=== PATIENT | male | born 1950 | race American Indian/Alaskan Native ===

== ENCOUNTER → 2017-09-25 | Outpatient (CLI) | payer OTHER | LOC: LAB SHORT 13:20 → LAB EV 13:20 | DX: J06.9 Acute upper respiratory infection, unspecified (principal) | CPT/HCPCS: 87070 ==

== ENCOUNTER 2020-04-13 07:51 | Day surgery (SDC) | payer OTHER ==
[~2020-04-13] VITALS: Ht 177.8 cm; Wt 103.0 kg
[~2020-04-13 07:51] MED LIST: ALLO100 PO; AMLO10 PO; LOSA25 PO; Neurontin300 MG PO; OMEP20ER PO; PARO10 PO; PRAV20 PO
--- NOTE | 2020-04-13 08:53 | NUR ---
Lungs clear T/O to Auscultation. History, Chart, Medications and Allergies reviewed before start of procedure. Patient confirms NPO status and agrees with scheduled surgery.
--- NOTE | 2020-04-13 09:04 | NUR ---
KNEE HIGH AIDA HOSE AND CALF PAS APPLIED TO RLE.
--- NOTE | 2020-04-13 09:17 | NUR ---
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
--- NOTE | 2020-04-13 17:52 | NUR ---
SHIFT SUMMARY PT HAS DONE WELL POST OP. INITIALLY STRUGGLED WITH PAIN BUT MUCH BETTER NOW. WORKED WITH THERAPY IN HALLWAY. EATING AND DRINKING. WILL ATTEMPT TO VOID, IF UNSUCCESSFUL BLADDER SCAN.
[2020-04-14 04:34] LABS: BASOPHILS ABSOLUTE AUTO 0.03 K/mm3 (0.00-0.23); BASOPHILS PERCENT AUTO 0 % (0-2); EOSINOPHILS ABSOLUTE AUTO 0.03 K/mm3 (0.00-0.68); EOSINOPHILS PERCENT AUTO 0 % (0-6); Hematocrit 39.4 % (37.0-53.0); Hemoglobin 13.7 g/dL (13.5-17.5); IMMATURE GRAN ABSOLUTE AUTO 0.07 K/mm3 (0.00-0.10); IMMATURE GRAN PERCENT AUTO 1 % (0-1); LYMPHOCYTES ABSOLUTE AUTO 2.98 K/mm3 (0.84-5.20); LYMPHOCYTES PERCENT AUTO 21 % (21-46); MONOCYTES ABSOLUTE AUTO 1.17 K/mm3 (0.16-1.47); MONOCYTES PERCENT AUTO 8 % (4-13); Mean Corpuscular HGB 32.7 pg (26.0-34.0); Mean Corpuscular HGB Conc 34.8 g/dL (31.5-36.5); Mean Corpuscular Volume 94 fL (80-100); Mean Platelet Volume 10.7 fL (9.1-12.4); NEUTROPHILS ABSOLUTE AUTO 9.62 K/mm3 (1.96-9.15); NEUTROPHILS PERCENT AUTO 69 % (41-73); Platelet Count 158 K/mm3 (150-400); RDW Coefficient Variation 11.8 % (11.7-14.2); RDW Standard Deviation 40.4 fL (35.1-46.3); Red Blood Cell Count 4.19 M/mm3 (4.30-5.90)
[2020-04-14 04:50] LABS: Anion Gap 6 mmol/L (6-16); Blood Urea Nitrogen 29 mg/dL (8-24); CO2, Blood 28 mmol/L (21-32); Calcium, Blood 8.8 mg/dL (8.5-10.1); Chloride, Blood 102 mmol/L (98-108); Creatinine, Blood 1.21 mg/dL (0.60-1.20); Glomerular Filtration Rate >60 (60-); Glucose, Blood 125 mg/dL (70-99); Potassium, Blood 3.8 mmol/L (3.5-5.5); Sodium, Blood 136 mmol/L (136-145)
--- NOTE | 2020-04-14 04:58 | NUR ---
SHIFT SUMMARY: "CATHY" IS A&OX4. VSS, NO ACUTE EVENTS OVERNIGHT. 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 HE IS LYING IN BED WITH HIS CALLL LIGHT IN REACH. WILL REPORT TO DAY SHIFT RN.
[2020-04-14] MEDS ORDERED: XARELTO10 MG PO (09:14)
[2020-04-14] MEDS ORDERED: Percocet 5-3251 EACH PO (09:15)
--- NOTE | 2020-04-14 11:46 | NUR ---
DISCHARGE PT EXCITED FOR D/C. ESCORTED OUT VIA W/C AFTER CLEARING THERAPY. PAIN WELL MANAGED. EATING, DRINKING, VOIDING. SCRIPTS, DRSGS, EXTRA AIDA HOSE, AND POLAR PACK GIVEN. SISTER AND SPOUSE AT SIDE FOR D/C.
== END 2020-04-14 11:50 | disposition home or self-care (01) ==
LOC: ORSCMMR 07:51 → ORD 09:45 → ORSCMMR 09:45 → SURS 13:01 → ORSCMMR 04-14 11:50
PROVIDERS: Orthopaedic Surgery
PROC: 0SRD0JA Replacement of Left Knee Joint with Synthetic Substitute, Uncemented, Open Approach (ICD-10-PCS; principal; 2020-04-13 09:45)
DX: M17.12 Unilateral primary osteoarthritis, left knee (principal); I10 Essential (primary) hypertension; K21.9 Gastro-esophageal reflux disease without esophagitis; Z79.899 Other long term (current) drug therapy; K76.0 Fatty (change of) liver, not elsewhere classified
CPT/HCPCS: 36415; 73560-LT; 80048; 85025; 88300; 97110; 97116; 97161; A9270; A9270-GY; C1776; J0171; J0690; J0735; J1100; J1885; J2250; J2370; J2405; J2704; J2795; J3010; J7120